=== PATIENT | female | born 1960 | race African-American/Black ===

== ENCOUNTER 2020-11-21 15:32 | Outpatient (REF) | payer OTHER, SELFPAY ==
--- NOTE | ~2020-11-21 | MM_ITS ---
EXAMINATION: MM SCREENING DIGITAL BREAST TOMOSYNTHESIS, BILATERAL CLINICAL INFORMATION: Screening. Asymptomatic. The lifetime risk of breast cancer based on the Tyrer-Cuzick Model is 4.3%. COMPARISON: Mammography: 09/04/2019 and studies dating back to 07/03/2011 TECHNIQUE: Digital breast tomosynthesis is performed in both the craniocaudal and mediolateral oblique views along with computer-aided detection (CAD). Synthesized 2D images are generated from the tomosynthesis. FINDINGS: There are scattered areas of fibroglandular density (ACR BI-RADS breast composition Category b). There is stable appearance of the left breast without new abnormal dominant mass or suspicious grouping of microcalcifications. About the deep lateral aspect of the right breast, is question of developing grouping of calcifications approximately 10 cm from the nipple, but on tomosynthesis views appear to be related to a combination of vessel and 3-D artifact. No new abnormal dominant mass is appreciated..Stable, nodular density in the lateral aspect of the right breast is again seen. MM/MM tomosynthesis screening BI IMPRESSION: There are no significant changes from prior study. ASSESSMENT: BI-RADS 2: Benign RECOMMENDATION: Routine annual mammography screening. This patient's information was entered into a reminder system with a target due date for their next mammogram.
== END 2020-11-21 15:33 | disposition home or self-care (01) ==
LOC: HO.MAMMO 15:32
PROVIDERS: Visit Provider Family Medicine
DX: Z12.31 Encounter for screening mammogram for malignant neoplasm of breast (principal)
CPT/HCPCS: 77063; 77067

== ENCOUNTER 2021-11-24 10:55 | Outpatient (REF) | payer OTHER, SELFPAY ==
--- NOTE | ~2021-11-24 | MM_ITS ---
EXAMINATION: MM SCREENING DIGITAL BREAST TOMOSYNTHESIS, BILATERAL CLINICAL INFORMATION: Screening. Asymptomatic. The lifetime risk of breast cancer based on the Tyrer-Cuzick Model is 4%. COMPARISON: Mammography: 11/21/2020, 09/04/2019, 07/28/2018 TECHNIQUE: Digital breast tomosynthesis is performed in both the craniocaudal and mediolateral oblique views along with computer-aided detection (CAD). Synthesized 2D images are generated from the tomosynthesis. FINDINGS: There are scattered areas of fibroglandular density (ACR BI-RADS breast composition Category b). There are no significant masses, abnormal calcifications, or other abnormalities. Circumscribed nodule mid upper outer right breast is similar to prior exams. No developing density. No significant changes. MM/MM tomosynthesis screening BI IMPRESSION: No mammographic evidence of malignancy. ASSESSMENT: BI-RADS 2: Benign RECOMMENDATION: Routine annual mammography screening. This patient's information was entered into a reminder system with a target due date for their next mammogram.
== END 2021-11-24 10:56 | disposition home or self-care (01) ==
LOC: HO.MAMMO 10:55
PROVIDERS: PCP Student in an Organized Health Care Education/Training Program; Visit Provider Student in an Organized Health Care Education/Training Program
DX: Z12.31 Encounter for screening mammogram for malignant neoplasm of breast (principal)
CPT/HCPCS: 77063; 77067

== ENCOUNTER 2022-07-08 10:15 | Outpatient (REF) | payer OTHER, SELFPAY ==
--- NOTE | ~2022-07-08 | MM_ITS ---
EXAMINATION: BONE DENSITOMETRY CLINICAL INDICATION: Osteoporosis. COMPARISON: Baseline BD dated 02/14/2019. TECHNIQUE: Using a TORCH.sh DXA System (software version: 13.1) manufactured by [employer], dual-energy x-ray absorptiometry was performed of the lumbar spine and left hip. The images are of good technical quality. Summary results are attached. FINDINGS: AP SPINE L1-L4: Current: BMD 0.889 g/cm2, Z-score -2.2, T-score -2.4, osteopenia, 12.0% decrease from baseline (<5% change is not significant). Baseline: BMD 1.010 g/cm2. LEFT FEMUR, NECK: Current: BMD 0.675 g/cm2, Z-score -2.5, T-score -2.6, osteoporosis. Baseline: BMD 0.688 g/cm2. LEFT FEMUR, TOTAL: Current: BMD 0.655 g/cm2, Z-score -3.1, T-score -2.8, osteoporosis, 1.2% increase from baseline (<5% change is not significant). Baseline: BMD 0.647 g/cm2. IDENTIFIED RISK FACTORS: Menopause, osteoporosis, height loss, history of fracture (adult), secondary osteoporosis, tobacco use (current smoker). HISTORY OF FRACTURE: Lower leg. MEDICATIONS: Multivitamin, vitamin D. MM/XR DEXA axial skeleton IMPRESSION: 1. DIAGNOSIS: Osteoporosis based on the lowest T-score value of -2.8 in the total femur applying World Health Organization criteria. 2. 10-YEAR FRACTURE RISK PREDICTION, FRAX: According to the guidelines, FRAX calculation should only be performed on patients in the osteopenia bone density category. Therefore, FRAX was not performed on this patient. 3. Treatment Recommendations: NOF guidelines recommend consideration for treatment in postmenopausal women and men age 50 and older presenting with the following: -A hip or vertebral (clinical or morphometric) fracture. -T-score less than or equal to -2.5 at the femoral neck or spine after appropriate evaluation to exclude secondary causes. -Low bone mass at the hip or spine and a 10-year fracture probability by FRAX of greater than or equal to 3% for hip fracture or greater than or equal to 20% for major osteoporotic fracture based on the [place] adapted WHO algorithm. 4. Other Recommendations: All treatment decisions require clinical judgment and consideration of individual patient factors, including patient preferences, comorbidities, previous drug use, risk factors not captured in the FRAX model (e.g. frailty, falls, vitamin D deficiency, increased bone turnover, interval significant decline in bone density) and possible under or overestimation of fracture risk by FRAX. Additional medical evaluation for secondary cause of low bone mineral density may be appropriate. FUTURE SCAN RECOMMENDATION: People with diagnosed cases of osteoporosis or at high risk for fracture should have regular bone mineral density tests. For patients eligible for Medicare, routine testing is allowed once every 2 years. The testing frequency can be increased to one year for patients who have rapidly progressing disease, those who are receiving or discontinuing medical therapy to restore bone mass, or have additional risk factors.
== END 2022-07-08 10:16 | disposition home or self-care (01) ==
LOC: HO.MAMMO 10:15
PROVIDERS: PCP Advanced Practice Midwife; Visit Provider Advanced Practice Midwife
DX: Z13.820 Encounter for screening for osteoporosis (principal); M81.0 Age-related osteoporosis without current pathological fracture; Z78.0 Asymptomatic menopausal state
CPT/HCPCS: 77080

== ENCOUNTER 2023-01-07 09:02 | Outpatient (REF) | payer OTHER, SELFPAY ==
--- NOTE | ~2023-01-07 | MM_ITS ---
EXAMINATION: MM SCREENING DIGITAL BREAST TOMOSYNTHESIS, BILATERAL CLINICAL INFORMATION: Screening. Asymptomatic. The lifetime risk of breast cancer based on the Tyrer-Cuzick Model is 3.6%. COMPARISON: Mammography: November 24, 2021 and studies dating back to July 31, 2014 TECHNIQUE: Digital breast tomosynthesis is performed in both the craniocaudal and mediolateral oblique views along with computer-aided detection (CAD). Synthesized 2D images are generated from the tomosynthesis. FINDINGS: The breasts are almost entirely fatty (ACR BI-RADS breast composition Category a). There are no new significant masses, abnormal calcifications, or other abnormalities. MM/MM tomosynthesis screening BI IMPRESSION: No significant changes from prior exam. ASSESSMENT: BI-RADS 1: Negative RECOMMENDATION: Routine annual mammography screening. This patient's information was entered into a reminder system with a target due date for their next mammogram.
== END 2023-01-07 09:03 | disposition home or self-care (01) ==
LOC: HO.MAMMO 09:02
PROVIDERS: PCP Advanced Practice Midwife; Visit Provider Advanced Practice Midwife
DX: Z12.31 Encounter for screening mammogram for malignant neoplasm of breast (principal)
CPT/HCPCS: 77063; 77067

== ENCOUNTER 2024-01-13 09:03 | Outpatient (REF) | payer OTHER, SELFPAY | END 2024-01-13 09:04 | disposition home or self-care (01) | LOC: HO.MAMMO 09:03 | PROVIDERS: Visit Provider Advanced Practice Midwife | DX: Z12.31 Encounter for screening mammogram for malignant neoplasm of breast (principal) | CPT/HCPCS: 77063; 77067 ==

== ENCOUNTER → 2024-01-13 09:30 | Outpatient (BNV) | payer OTHER, SELFPAY | PROVIDERS: Visit Provider Radiology Diagnostic Radiology | DX: Z12.31 Encounter for screening mammogram for malignant neoplasm of breast (principal) | CPT/HCPCS: 77063; 77067 ==

== ENCOUNTER 2024-07-14 10:36 | Outpatient (REF) | payer OTHER, SELFPAY | END 2024-07-14 10:37 | disposition home or self-care (01) | LOC: HO.HMGCX 10:36 | PROVIDERS: PCP Student in an Organized Health Care Education/Training Program; Visit Provider Internal Medicine | DX: R22.1 Localized swelling, mass and lump, neck (principal) | CPT/HCPCS: 76536 ==

== ENCOUNTER 2024-11-23 10:14 | Outpatient (REF) | payer OTHER, SELFPAY ==
--- NOTE | ~2024-11-23 | CT_ITS ---
CLINICAL HISTORY: Thyroglossal cyst CT soft tissue neck with contrast Comparison: None Findings: The visualized intracranial contents are unremarkable. No prevertebral fluid. Epiglottis is within normal limits. Pharyngeal mucosal space and parapharyngeal fat are normal. Salivary glands are unremarkable. No sialoliths. Thyroid gland is unremarkable. Extending from the base of the tongue deep to the hyoid muscle is a thin-walled hypodense 2.0 x 2.0 x 1.6 cm mass, possible thyroglossal duct cyst. Normal-appearing thyroid tissue extends to the caudal aspect of the cyst. Visualized lung apices are clear. No acute fracture or dislocation. IMPRESSION: Thyroglossal duct cyst. This document has been electronically signed by: Loyd Cintron MD on 11/24/2024 09:19:42
--- OUTSIDE RECORDS SUMMARY | 2024-11-23 11:05 | XMS_ITS | Encounter Summary ---
Author Organization [employer] Address [address] [place] [address] [address] [place] [address] Care Team Providers Care Senior Abap Developer Name Role Phone Marija Rg MD Primary Care Provider [phone] Reason for Visit * Reason Comments Med Refill Encounter Details Date Type Department Care Team ([facility] st Contact Info) Description 07/17/2024 Refill [facility] [address] [place], [place] [phone] Marija Rg MD [address] [place] [address] Social History Tobacco Use Types Packs/Day Years Used Date Smoking Tobacco: Never Assessed Comments Unknown Sex and Gender Information Value Date Recorded Sex Assigned at Female 06/22/2022 10:16 AM EDT Legal Sex Female 10:16 AM EDT Gender Identity Female 06/22/2022 10:16 AM EDT Sexual Orientation Straight 06/22/2022 10 :16 AM EDT documented as of this encounter Plan of Treatment Not on file documented as of this encounter Visit Diagnoses Not on filedocumented in this encounter Care Teams Senior Abap Developer Relationship Specialty Start Date End Date Marija Rg MD [address] [place] [id number] PCP - General Family Medicine 04/18/20 documented as of this encounter
--- OUTSIDE RECORDS SUMMARY | 2024-11-23 11:05 | XMS_ITS | Clinical Summary ---
Author Organization [employer] Address [address] [place] [address] [address] [place] [address] Care Team Providers Care Sock Examiner Name Role Phone Marija Rg MD Primary Care Provider [phone] Allergies Active Allergy Reactions Criticality Noted Date Comments Latex 06/21/2023 Peanut-Containing Drug Products 06/21/2023 Penicillins Other reaction(s): difficulty breathing: rash Medications hydroCHLOROthia zide (HYDRODiuril) 25 MG tablet Take 25 mg by mouth. 12/20/2017 Active methIMAzole (Tapazole) 10 MG tablet Take 10 mg by mouth in the morning. 06/04/2023 Active omeprazole (PriLOSEC) [address] capsule TAKE 1 CAPSULE(20 MG) BY MOUTH BEFORE BREAKFAST. DO NOT CRUSH OR CHEW 30 capsule 11 04/03/2024 Active omeprazole (PriLOSEC) [address] capsule TAKE 1 CAPSULE(20 MG) BY MOUTH BEFORE BREAKFAST. DO NOT CRUSH OR CHEW 30 capsule 11 04/03/2024 Active simvastatin (Zocor) 5 MG tablet TAKE 1 TABLET BY MOUTH EVERY DAY IN THE EVENING 90 tablet 1 06/02/2024 Active amLODIPine (Norvasc) 10 MG tablet TAKE 1 TABLET(10 MG) BY MOUTH IN THE MORNING 90 tablet 1 06/06/2024 Active D3-1000 25 MCG (1000 UT) capsule TAKE 1 CAPSULE BY MOUTH EVERY AM 30 capsule 11 07/03/2024 Active propranolol (Inderal) 40 MG tablet TAKE 1 TABLET BY MOUTH TWICE DAILY 180 tablet 3 07/05/2024 Active Active Problems Problem Noted Date Diagnosed Date Lump in neck 07/04/2024 Assessment & Plan (07/04/2024 6:50 PM EST): Will order a neck ultrasound, no associated lymphadenopathy palpated Senile osteoporosis 06/21/2023 06/21/2023 Irritable bowel syndrome with constipation 01/3106/21/2023 Benign essential hypertension 04/18/2018 Graves' disease 04/18/2018 06/21/2023 Gastroesophageal reflux disease without esophagi tis 04/18/2018 06/21/2023 Encounters Date Type Department Care Team Description 09/21/2024 Orders Only [facility] [address] [place] [address] Marija Rg MD Lump in neck (Primary Dx) 09/20/2024 Telephone [employer] [address] [place] [phone] Marija Rg MD CTA NECK ORDER 09/14/2024 Orders Only [facility] [address] [place] [address] Marija Rg MD Lump in neck (Primary Dx) 09/13/2024 Telephone [facility] [address] [place] [address] Marija Rg MD Lab Orders 09/12/2024 Telephone [facility] [address] [place] [address] Gracie Lai RN 09/12/2024 Orders Only [facility] [address] [place] [address] Marija Rg MD Lump in neck (Primary Dx) from Last 3 Months Immunizations Name Administration Dates Next Due Tdap 07/22/2021 Social History Tobacco Use Types Packs/Day Years Used Date Smoking Tobacco: Never Assessed Comments Unknown Sex and Gender Information Value Date Recorded Sex Assigned at Female 06/22/2022 10:16 AM EDT Legal Sex Female 10:16 AM EDT Gender Identity Female 06/22/2022 10:16 AM EDT Sexual Orientation Straight 06/22/2022 10 :16 AM EDT Last Filed Vital Signs Vital Sign Reading Time Taken Comments Blood Pressure 136/70 07/04/2024 3:38 PM EST Pulse 88 07/04/2024 3:38 PM EST Temperature 36.7 ??C (98.1 ??F) 07/04/2024 3:38 PM ES T Respiratory Rate 20 07/04/2024 3:38 PM EST Oxygen Saturation - - Inhaled Oxygen Concentration - - Weight 81.2 kg (179 lb) 07/04/2024 3:38 PM EST Height 165.1 cm (5' 5 ) 07/04/2024 3:38 PM EST Body Mass Index 29.79 07/04/2024 3:38 PM EST Plan of Treatment Health Maintenance Due Date Last Done Comments CT Colonography 1958 Colonoscopy 1958 Colorectal Cancer Screening 1958 Depression Screening 1958 FIT DNA/Cologuard 1958 FIT 1958 FOBT 1958 SDOH Screening 1958 Sigmoidoscopy 1958 Alcohol/Substance Use Screening 1970 Tobacco Screening 1970 Hepatitis C Screening 1976 Pneumococcal Vaccine: 50+ Years (1 of 1 - PCV) 2008 Zoster Vaccines (1 of 2) 2008 COVID-19 Vaccine (4 - season) 2024 09/29/2021, 04/08/2021, 03/18/2021 Influenza Vaccine (#1) 2024 Mammogram 01/12/2026 01/13/2024, 12/21, 11/24/2021, Additional history exists Lipid Panel 06/30/2027 06/30/2022, 07/22/2021 DTaP/Tdap/Td Vaccines (2 - Td or Tdap) 07/22/2031 07/22/2021 RSV Patients and Patients Aged 60 years or older (1 - 1-dose 75+ series) 2033 Cervical Cancer Screening Discontinued HPV/Cotest Discontinued 06/30/2022 Pap Smear Discontinued 06/30/2022 HIB Vaccines Aged Out No longer eligi ble based on patient's age to complete this topic HPV Vaccines Aged Out No longer eligi ble based on patient's age to complete this topic Hepatitis A Vaccines Aged Out No long er eligible based on patient's age to complete this topic Hepatitis B Vaccines Aged Out No long er eligible based on patient's age to complete this topic IPV Vaccines Aged Out No longer eligi ble based on patient's age to complete this topic Meningococcal Vaccine Aged Out No matthew jossue eligible based on patient's age to complete this topic RSV under 20 months Aged Out No longe r eligible based on patient's age to complete this topic Rotavirus Vaccines Aged Out No longer eligible based on patient's age to complete this topic Procedures Procedure Name Priority Date/Time Associated Diagnosis Comments BI MAMMOGRAM SCREENING TOMOSYNTHESIS BILATERAL Routine 01/13/2024 9:31 AM EDT THINPREP IMAGING PAP AND HPV MRNA E6/E7 WITH REFLEX TO HPV 16,18/45 Routine 06/30/2022 11:01 AM EST LIPID PANEL, STANDARD Routine 06/30/2022 10:35 AM EST from Last 3 Months or Most Recently Relevant to Health Maintenance Results * BI Mammogram Screening Tomosynthesis Bilateral (01/13/2024 9:31 AM EDT) Anatomical Region Laterality Modality Breast Bilateral Mammography 01/13/2024 9:31 AM EDT Narrative 01/27/2024 2:01 PM EDT ? [facility] ? [address] [facility] ?[place] [id number] ? Mammography Report ? Signed ? Patient: Hipolito,Renata ?MR#: [id number] ?? [id number] ? : 1960 ?Acct:[id number] ? Age/Sex: 63 / F ?ADM Date: 05/23/24 ? Loc: HO.MAMMO ? Attending Dr: Mendoza Pérez CNM ? Ordering Physician: MENDOZA PÉREZ CNM ?Results: 1 ?? Negative ? Date of Service: 01/13/24 ?Follow Up: 1 Year From Orig ?? inal Mammogram ? Procedure(s): MM tomosynthesis screening BI ?? Accession Number(s): [id number] ? cc: REINALDOMENDOZA MCCLOUD BRAYANMario ? EXAMINATION: ?? MM SCREENING DIGITAL BREAST TOMOSYNTHESIS, BILATERAL ? CLINICAL INFORMATION: ? Screening. Asymptomatic. ? COMPARISON: ?? Mammography: This study is compared with prior exams dating back to ?? 2018. ? TECHNIQUE: ?? Digital breast tomosynthesis is performed in both the craniocaudal and ?? mediolateral oblique views along with computer-aided detection (CAD). ?? Synthesized 2D images are generated from the tomosynthesis. ? FINDINGS: ?? The breasts are almost entirely fatty (ACR BI-RADS breast composition ?? Category a). ? There are no significant masses, abnormal calcifications, or other ?? abnormalities. ? MM/MM tomosynthesis screening BI ?? IMPRESSION: ?? No mammographic evidence of malignancy. ? ASSESSMENT: ? BI-RADS BI-RADS 1 - Negative ? RECOMMENDATION: ?? Routine annual mammography screening. ? 1 year F/U ? This examination should not preclude the clinical evaluation of a ?? suspicious palpable abnormality. ? This patient's information was entered into a reminder system with a ?? target due date for their next mammogram. ? Dictated By: ?Bernarda Kimball MD ? Signed By: ?<Electronically signed by Bernarda Kimball MD in OV> ? // 1358 ? DD/ 0931 ? TD/TT: ? Steam Table Associate: ? Procedure Note Donotuseinterpreter, Image - 01/27/2024 [facility] [address] [place] [address] Mammography Report Signed Patient: Anayeli Mcmillan#: [id number] : 9Acct:[id number] Age/Sex: 63 / FADM Date: 01/13/24 Loc: HO.MAMMO Attending Dr: Mendoza Pérez CNM Ordering Physician: MENDOZA PÉREZesults: 1 Negative Date of Service: 01/13/24Follow Up: 1 Year From Orig inal Mammogram Procedure(s): MM tomosynthesis screening BI Accession Number(s): [id number] cc: MENDOZA PÉREZ CNM EXAMINATION: MM SCREENING DIGITAL BREAST TOMOSYNTHESIS, BILATERAL CLINICAL INFORMATION: Screening. Asymptomatic. COMPARISON: Mammography: This study is compared with prior exams dating back to 2019. TECHNIQUE: Digital breast tomosynthesis is performed in both the craniocaudal and mediolateral oblique views along with computer-aided detection (CAD). Synthesized 2D images are generated from the tomosynthesis. FINDINGS: The breasts are almost entirely fatty (ACR BI-RADS breast composition Category a). There are no significant masses, abnormal calcifications, or other abnormalities. MM/MM tomosynthesis screening BI IMPRESSION: No mammographic evidence of malignancy. ASSESSMENT: BI-RADS BI-RADS 1 - Negative RECOMMENDATION: Routine annual mammography screening. 1 year F/U This examination should not preclude the clinical evaluation of a suspicious palpable abnormality. This patient's information was entered into a reminder system with a target due date for their next mammogram. Dictated By: Bernarda Kimball MD Signed By: <Electronically signed by Bernarda Kimball MD in OV> 01/27/24 1358 DD/ 0931 TD/TT: Steam Table Associate: Mendoza Pérez CNM IMG BI PROCEDURES Final R esult * THINPREP TIS PAP AND HPV mRNA E6/E7 WITH REFLEX TO HPV 16,18/45 (06/30/2022 11:01 AM EST) Clinical Information: None given CONVERTED LEGACY LABS COMMENT SEE COMMENT CONVERTE D LEGACY LABS Comment: EXPLANATORY NOTE: ? The Pap is a screening test for cervical cancer. It is ?? not a diagnostic test and is subject to false negative ?? and false positive results. It is most reliable when a ?? satisfactory sample, regularly obtained, is submitted ?? with relevant clinical findings and history, and when ?? the Pap result is evaluated along with historic and ?? current clinical information. ?? COMMENT: This Pap test has been evaluated with computer assisted technology. CONVERTED LEGACY LABS Roof Shingler : SEE COMMENT CONVERTED LEGACY LABS Comment: BJ, CT(ASCP) CT screening location: [address] ??[address] HPV nRNA E6/E7 Not Detected Not Detected CONVERTED LEGACY LABS Comment: Methodology: [employer]-Mediated Amplification This assay detects E6/E7 viral messenger RNA (mRNA) from 14 high-risk HPV types (16,18,31,33,35,39,45,51,52,56,58,59,66,68). ? Cervical sources are required for HPV testing. If a vaginal source from a patient who has had a total hysterectomy with removal of cervix was ?? submitted, please contact the testing laboratory for alternative testing options. ?? For additional information, please refer to http://education.[employer]/faq/PQJ867u5 (This link if provided for information/ educational purposes only.) Interpretation/R esult: Negative for intraepithelial lesion or malignancy. CONVERTED LEGACY LABS LMP: 45 CONVERTED LEGACY LABS Prev. BX: NONE GIVEN CONVERTED LEGACY LABS Prev. PAP: NIL 05/2017 CONVERT ED LEGACY LABS SOURCE: None given CONVERTED LEGACY LABS Statement Of Adequacy: SEE COMMENT CONVERTED LEGACY LABS Comment: Satisfactory for evaluation. Endocervical/transformation zone component present. 06/30/2022 11:0 1 AM EST Mendoza [facility] PATHOLOGY ORDERABLES Final Result CONVERTED LEGACY LABS * (ABNORMAL) LIPID PANEL, STANDARD (06/30/2022 10:35 AM EST) Chol/HDLC Ratio 3.2 <5.0 (calc) CONVERTED LEGACY LABS Cholesterol, Total 197 <200 mg/dL CONVERTED LEGACY LABS HDL Cholesterol 61 > OR = 50 mg/dL CONVERTED LEGACY LABS LDL Cholesterol 117(H) mg/dL (calc) CONVERTED LEGACY LABS Comment: Reference range: <100 ?? Desirable range <100 mg/dL for primary prevention; ?? <70 mg/dL for patients with CHD or diabetic patients ?? with > or = 2 CHD risk factors. ?? LDL-C is now calculated using the Lamin ?? calculation, which is a validated novel method providing ?? better accuracy than the Friedewald equation in the ?? estimation of LDL-C. ?? Joe LANDON et al. KENDRICK. 2013;310(19): 3200-1517 ?? (http://[employer]/faq/DFQ838) Non-HDL Cholesterol 136(H) <130 mg/dL (calc) CONVERTED LEGACY LABS Comment: For patients with diabetes plus 1 major ASCVD risk ?? factor, treating to a non-HDL-C goal of <100 mg/dL ?? (LDL-C of <70 mg/dL) is considered a therapeutic ?? option. Triglycerides 91 <150 mg/dL CONVE RTED LEGACY LABS 06/30/2022 10:3 5 AM EST us Marija Rg MD LAB BLOOD ORDERABLES Final Resul t CONVERTED LEGACY LABS from Last 3 Months or Most Recently Relevant to Health Maintenance Insurance [facility] * Guarantor: Renata Mcmillan Account Type Relation to Patient Date of Phone Billing Address Personal/Family Self [address] [place] Care Teams Sock Examiner Relationship Specialty Start Date End Date Marija Rg MD [address] [place] [phone] PCP - General Family Medicine 04/18/20
--- OUTSIDE RECORDS SUMMARY | 2024-11-23 11:05 | XMS_ITS | Encounter Summary ---
Author Organization [employer] Address [address] [place] [address] [address] [place] [address] Care Team Providers Care Electronic Equipment Repairmen Name Role Phone Marija Rg MD Primary Care Provider [phone] Reason for Visit * Reason Onset Date Comments Nurse Triage 05/26/2024 Encounter Details Date Type Department Care Team ([facility] st Contact Info) Description 05/26/2024 Telephone [facility] [address] [place] [address] Marija Rg MD [address] [place] [address] Nurse Triage Social History Tobacco Use Types Packs/Day Years Used Date Smoking Tobacco: Never Assessed Comments Unknown Sex and Gender Information Value Date Recorded Sex Assigned at Female 06/22/2022 10:16 AM EDT Legal Sex Female 10:16 AM EDT Gender Identity Female 06/22/2022 10:16 AM EDT Sexual Orientation Straight 06/22/2022 10 :16 AM EDT documented as of this encounter Miscellaneous Notes * Telephone Encounter - Jsoe Tobar - 05/26/2024 9:46 AM EDT Symptom: Toenail Symptoms Outcome: Schedule an urgent appointment (within 1 hour) or talk to a nurse or provider soon Reason: Severe pain now The caller accepted this outcome. documented in this encounter Plan of Treatment Not on file documented as of this encounter Visit Diagnoses Not on filedocumented in this encounter Care Teams Electronic Equipment Repairmen Relationship Specialty Start Date End Date Marija Rg MD [address] [place] [address] PCP - General Family Medicine 04/18/20 documented as of this encounter
[2024-11-23] MEDS: iohexoL 350 MG/ML 75 ML INFUS..BTL 60 ML IV (11:47)
[2024-11-23 14:54] LABS: Creatinine POC 0.7 mg/dL (0.5-1.4); GFR POC > 60
== END 2024-11-23 10:15 | disposition home or self-care (01) ==
LOC: HO.CT 10:14
PROVIDERS: PCP Student in an Organized Health Care Education/Training Program; Visit Provider Student in an Organized Health Care Education/Training Program
DX: R22.1 Localized swelling, mass and lump, neck (principal)
CPT/HCPCS: 70491; 82565; Q9967

== ENCOUNTER → 2024-11-23 10:16 | Outpatient (BNV) | payer OTHER, SELFPAY | PROVIDERS: PCP Student in an Organized Health Care Education/Training Program; Visit Provider Specialist | DX: Q89.2 Congenital malformations of other endocrine glands (principal) | CPT/HCPCS: 70491 ==

== ENCOUNTER 2025-01-26 10:57 | Outpatient (REF) | payer OTHER, SELFPAY ==
--- OUTSIDE RECORDS SUMMARY | 2025-01-26 11:51 | XMS_ITS | Encounter Summary ---
Author Organization [employer] Address [address] [place] [address] [address] [place] [address] Care Team Providers Care Manager Pathology Name Role Phone Marija Rg MD Primary Care Provider [phone] Reason for Visit * Reason Onset Date Comments Nurse Triage 05/26/2024 Encounter Details Date Type Department Care Team ([facility] st Contact Info) Description 05/26/2024 Telephone [facility] [address] [place] [address] Marija Rg MD [address] [place] [address] Nurse Triage Social History Tobacco Use Types [...] encounter Miscellaneous Notes * Telephone Encounter - Jose Tobar - 05/26/2024 9:46 AM EDT Symptom: Toenail Symptoms Outcome: Schedule an urgent appointment (within 1 hour) or talk to a nurse or provider soon Reason: Severe pain now The caller accepted this outcome. documented in this encounter Plan of Treatment Not on file documented as of this encounter Visit Diagnoses Not on filedocumented in this encounter Care Teams Manager Pathology Relationship Specialty Start Date End Date Marija Rg MD [address] [place] [id number] PCP - General Family Medicine 04/18/20 documented as of this encounter
== END 2025-01-26 10:58 | disposition home or self-care (01) ==
LOC: HO.MAMMO 10:57
PROVIDERS: PCP Student in an Organized Health Care Education/Training Program; Visit Provider Student in an Organized Health Care Education/Training Program
DX: Z12.31 Encounter for screening mammogram for malignant neoplasm of breast (principal)
CPT/HCPCS: 77063; 77067

== ENCOUNTER → 2025-01-26 11:15 | Outpatient (BNV) | payer OTHER, SELFPAY | PROVIDERS: PCP Student in an Organized Health Care Education/Training Program; Visit Provider Internal Medicine | DX: Z12.31 Encounter for screening mammogram for malignant neoplasm of breast (principal) | CPT/HCPCS: 77063; 77067 ==